=== PATIENT | male | born 1985 | race Caucasian/White ===

== ENCOUNTER 2016-12-19 18:20 | Emergency (ER) | payer OTHER ==
[~2016-12-19] VITALS: Ht 170.2 cm; Wt 68.0 kg
[2016-12-19 18:22] VITALS: BP 120/66; PULSE 74; RESP 16; TEMP 98.8; O2SAT 99
--- NOTE | 2016-12-19 19:38 | PD ---
Physical Exam Time Seen by Provider: 19:37 Narrative 31 y/o male presents for evaluation of suicidal thoughts. He reports that the easiest way would be to take a friends gun and use it. Denies drug or alcohol use. Currently homeless. vss Seen at triage desk. Awaiting bed placement. Data Data Last Documented VS Vital Signs Date Time Temp Pulse Resp B/P Pulse Ox O2 Delivery O2 Flow Rate FiO2 12/19/16 18:22 98.8 74 16 120/66 99 Room Air [facility] Medical Record Reviewed: Yes Supervised Visit with ESTIVEN: No Scripts No Active Prescriptions or Reported Meds Julio Quinones December 19, 2016 19:38
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
[2016-12-19 20:55] VITALS: BP 122/55; PULSE 57; RESP 16; O2SAT 99
[2016-12-19 22:22] VITALS: BP 146/63; PULSE 58; RESP 19; O2SAT 98
[2016-12-19 23:24] LABS: AUTOMATED NEUTROPHIL # 3.1 TH/MM3 (1.8-7.7); BASOPHIL # 0.1 TH/MM3 (0-0.2); BASOPHIL % 1.1 % (0.0-2.0); EOSINOPHIL # 0.3 TH/MM3 (0-0.4); EOSINOPHIL % 4.9 % (0.0-4.0); HEMO FLAGS DIFF FINAL; LYMPH % 35.9 % (9.0-44.0); LYMPHOCYTE # 2.2 TH/MM3 (1.0-4.8); MEAN CELL VOLUME 91.4 FL (80.0-100.0); MEAN CORPUSCULAR HEMOGLOBIN 31.8 PG (27.0-34.0); MEAN CORPUSCULAR HGB CONC 34.8 % (32.0-36.0); MONO % 8.5 % (0.0-8.0); NEUT % 49.6 % (16.0-70.0); PLATELET COUNT 192 TH/MM3 (150-450); RED BLOOD COUNT 4.04 MIL/MM3 (4.50-5.90); RED CELL DISTRIBUTION WIDTH 13.1 % (11.6-17.2); WHITE BLOOD COUNT 6.2 TH/MM3 (4.0-11.0)
[2016-12-19 23:32] LABS: AMPHETAMINE, URINE NEG (NEG); BARBITURATES, URINE NEG (NEG); COCAINE, URINE NEG (NEG)
[2016-12-19 23:47] LABS: ALT (GPT) 23 U/L (12-78); ANION GAP 5 MEQ/L (5-15); AST (GOT) 16 U/L (15-37); BLOOD UREA NITROGEN 11 MG/DL (7-18); CHLORIDE 108 MEQ/L (98-107); GLOMERULAR FILTRATION RATE 109 ML/MIN (>89); POTASSIUM 3.7 MEQ/L (3.5-5.1); SODIUM (NA) 143 MEQ/L (136-145)
[2016-12-19 23:50] LABS: ALKALINE PHOSPHATASE 77 U/L (45-117); TOTAL BILIRUBIN ADULT 0.2 MG/DL (0.2-1.0)
[2016-12-20 02:18] VITALS: BP 126/72; PULSE 55; RESP 16; O2SAT 99
[2016-12-20 06:37] VITALS: BP 102/55; PULSE 65; RESP 18; O2SAT 99
[2016-12-20 09:58] VITALS: BP 102/55; PULSE 74; RESP 16; TEMP 98.8; O2SAT 99
[2016-12-20 10:00] VITALS: BP 104/64; PULSE 61; RESP 18
[2016-12-20 15:21] VITALS: BP 104/62
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
== END 2016-12-20 15:49 | disposition home or self-care (01) ==
LOC: NEPJ 18:20
DX: F43.20 Adjustment disorder, unspecified (principal); Z76.5 Malingerer [conscious simulation]; F33.9 Major depressive disorder, recurrent, unspecified; F31.9 Bipolar disorder, unspecified; Z59.0 Homelessness; Z72.0 Tobacco use
CPT/HCPCS: 80053; 80307; 85025; 99285

== ENCOUNTER 2016-12-27 10:32 | Emergency (ER) | payer OTHER ==
[~2016-12-27] VITALS: Ht 170.2 cm; Wt 70.0 kg
[2016-12-27 10:39] VITALS: BP 139/83; PULSE 84; RESP 16; TEMP 98.3; O2SAT 98
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
[2016-12-27] MEDS ORDERED: TETANUS/DIPHTHERIA TOXOID ADULT 0.5 ML VIAL IM ONE (11:00)
[2016-12-27] MEDS ORDERED: RABIES IMMUNE GLOBULIN INJ 1,500 UNITS/10 ML VIAL IM ONE (11:00)
[2016-12-27] MEDS ORDERED: RABIES VACCINE HUMAN DIPL CELL 2.5 UNITS/ML SYRINGE IM ONE (11:00)
[2016-12-27] MEDS ORDERED: AMOXICILLIN/CLAVULANATE K 500 MG TAB PO ONE (11:00)
[2016-12-27] MEDS ORDERED: AUGM500T7 PO (11:22)
== END 2016-12-27 13:21 | disposition home or self-care (01) ==
LOC: NEPD 10:32
DX: S71.152A Open bite, left thigh, initial encounter (principal); W54.0XXA Bitten by dog, initial encounter; Y93.H3 Activity, building and construction; Y92.9 Unspecified place or not applicable; Y99.0 Civilian activity done for income or pay; Z72.0 Tobacco use; Z23 Encounter for immunization
CPT/HCPCS: 90375; 90471; 90472; 90675; 90714; 96372

== ENCOUNTER 2017-01-16 20:42 | Emergency (ER) | payer OTHER ==
[~2017-01-16] VITALS: Ht 175.3 cm; Wt 81.8 kg
[~2017-01-16 20:42] MED LIST: AUGM500T7 PO
[2017-01-16 20:49] VITALS: BP 116/85; PULSE 74; RESP 16; TEMP 97.8; O2SAT 96
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
[2017-01-16] MEDS ORDERED: SODIUM CHLORIDE 0.9% FLUSH 10 ML FLUSH IVF PRN (21:00)
[2017-01-16 21:14] LABS: AUTOMATED NEUTROPHIL # 3.7 TH/MM3 (1.8-7.7); BASOPHIL # 0.1 TH/MM3 (0-0.2); BASOPHIL % 1.5 % (0.0-2.0); EOSINOPHIL # 0.2 TH/MM3 (0-0.4); EOSINOPHIL % 2.7 % (0.0-4.0); HEMO FLAGS DIFF FINAL; LYMPH % 31.3 % (9.0-44.0); LYMPHOCYTE # 2.1 TH/MM3 (1.0-4.8); MEAN CELL VOLUME 91.6 FL (80.0-100.0); MEAN CORPUSCULAR HEMOGLOBIN 30.9 PG (27.0-34.0); MEAN CORPUSCULAR HGB CONC 33.7 % (32.0-36.0); NEUT % 55.5 % (16.0-70.0); PLATELET COUNT 225 TH/MM3 (150-450); RED BLOOD COUNT 4.69 MIL/MM3 (4.50-5.90); RED CELL DISTRIBUTION WIDTH 12.8 % (11.6-17.2); WHITE BLOOD COUNT 6.8 TH/MM3 (4.0-11.0)
[2017-01-16 21:32] LABS: APTT (PATIENT) 28.9 SEC (24.3-30.1); PROTHROMBIN TIME - PATIENT 10.6 SEC (9.8-11.6)
[2017-01-16 21:38] LABS: ALT (GPT) 32 U/L (12-78); ANION GAP 8 MEQ/L (5-15); AST (GOT) 27 U/L (15-37); BICARBONATE 31.1 MEQ/L (21.0-32.0); BLOOD UREA NITROGEN 13 MG/DL (7-18); CHLORIDE 103 MEQ/L (98-107); GLOMERULAR FILTRATION RATE 95 ML/MIN (>89); POTASSIUM 3.4 MEQ/L (3.5-5.1); SODIUM (NA) 142 MEQ/L (136-145)
--- NOTE | 2017-01-16 21:38 | RADRPT ---
EXAM DATE/TIME: 01/16/2017 21:08 [place] COMPARISON: CHEST SINGLE AP, June 18, 2016, 12:22. INDICATIONS : Shortness of breath. MEDICAL HISTORY : None. SURGICAL HISTORY : None. ENCOUNTER: Initial ACUITY: 1 day PAIN SCORE: 0/10 LOCATION: Bilateral chest FINDINGS: A single view of the chest demonstrates the lungs to be symmetrically aerated without evidence of mas s, infiltrate or effusion. The cardiomediastinal contours are unremarkable. Osseous structures are intact. CONCLUSION: No acute disease. Robinson Singh MD on January 16, 2017 at 21:36 Board Certified Radiologist. This report was verified electronically.
[2017-01-16 21:42] LABS: ALKALINE PHOSPHATASE 85 U/L (45-117); CREATINE KINASE 356 U/L (39-308); TOTAL BILIRUBIN ADULT 0.3 MG/DL (0.2-1.0)
[2017-01-16] MEDS ORDERED: methylPREDNISolone SOD SUCC 125 MG/2 ML VIAL IVP ONE (21:45)
[2017-01-16 21:55] LABS: CKMB 2.1 NG/ML (0.5-3.6)
[2017-01-16] MEDS: RESP: ALBUTEROL 2.5 MG/IPRATROPIUM 0.5 MG NEB (SCH) INH ×2 (22:03→22:04)
[2017-01-16] MEDS ORDERED: VENTAER INH (22:36)
[2017-01-16] MEDS ORDERED: PRED50 PO (22:36)
[2017-01-16 23:24] VITALS: BP 120/72
--- NOTE | 2017-01-17 08:15 | EKG ---
Date Performed: 01/16/2017 Time Performed: 20:55:48 PTAGE: 31 years EKG: Sinus rhythm WITH SINUS ARRHYTHMIA NORMAL ECG PREVIOUS TRACING : 06/18/2016 12.05 No significant change from previous tracing noted. DOCTOR: Farooq Baker Interpretating Date/Time 01/17/2017 08:14:08
== END 2017-01-16 23:25 | disposition home or self-care (01) ==
LOC: NEPD 20:42
DX: J45.901 Unspecified asthma with (acute) exacerbation (principal); F17.210 Nicotine dependence, cigarettes, uncomplicated
CPT/HCPCS: 71010; 80053; 82550; 82552; 84484; 85025; 85610; 85730; 93005; 94640; 94664; 96374; 99285; J2930

== ENCOUNTER 2017-01-27 08:26 | Emergency (ER) | payer OTHER ==
[~2017-01-27] VITALS: Ht 170.2 cm; Wt 68.0 kg
[~2017-01-27 08:26] MED LIST changes: -AUGM500T7 PO; +PRED50 PO; +VENTAER INH
[2017-01-27 08:34] VITALS: BP 136/66; PULSE 100; RESP 20; TEMP 98.9; O2SAT 97
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
[2017-01-27] MEDS ORDERED: PENI500T PO (10:41)
[2017-01-27] MEDS ORDERED: MAGICADU2 SWISH-SWAL (10:41)
== END 2017-01-27 12:04 | disposition home or self-care (01) ==
LOC: NEPD 08:26
DX: J03.90 Acute tonsillitis, unspecified (principal); F17.210 Nicotine dependence, cigarettes, uncomplicated
CPT/HCPCS: 99284